=== PATIENT | male | born 1940 | race Caucasian/White ===

== ENCOUNTER 2019-12-27 16:22 | Inpatient (IN) ==
[2019-12-27] MEDS ORDERED: DEXTROSE 50% 25 GM/50 ML VIAL IV PRN (19:44)
[2019-12-27] MEDS ORDERED: DOCUSATE SODIUM 100 MG CAPSULE PO PRN (19:44)
[2019-12-27] MEDS ORDERED: GLUCAGON 1 MG VIAL IM PRN (19:44)
[2019-12-27] MEDS ORDERED: hydrALAZINE 20 MG/1 ML VIAL IV PRN (19:59)
[2019-12-27] MEDS ORDERED: CLOPIDOGREL 300 MG TABLET PO STA (20:04)
[2019-12-27 20:18] LABS: Basophils # 0.1 10*3/uL (0.0-0.2); Basophils % 0.4 % (0.0-0.8); Eosinophils % 0.1 % (0.00-10.9); Hemoglobin 17.5 GM/DL (14.0-18.0); Immature Granulocytes % 0.4 %; Immature Granulocytes Absolute 0.07 #; Lymphocytes # 2.3 10*3/uL (1.4-4.0); Lymphocytes % 14.7 % (21.2-54.2); Mean Corpuscular Volume 90.4 FL (87-102); Mean Platelet Volume 10.2 FL (9.6-12.0); Monocytes % 4.2 % (1.7-12.7); Neutrophils % 80.2 % (38.7-73.9); Platelet Count 278 T/CUMM (130-400); Red Blood Count 5.86 MC/CUMM (3.8-5.5); Red Cell Distribution Width 12.5 % (9.3-17.3); White Blood Count 15.9 T/CUMM (4-12)
[2019-12-27 20:38] LABS: Albumin 3.6 G/DL (3.4-5.0); Bilirubin,Total 0.8 MG/DL (0.2-1.0); Calcium 9.1 MG/DL (8.5-10.1); Osmolality,Calculated 278.2 MOS/KG (273-304); Total Protein 7.1 G/DL (6.4-8.3)
[2019-12-27] MEDS ORDERED: METOPROLOL TARTRATE 25 MG TABLET PO SCH (21:00)
[2019-12-27] MEDS ORDERED: METOPROLOL TARTRATE 25 MG TABLET PO ONE (21:01)
[2019-12-27] MEDS: ATORVASTATIN 40 MG TABLET PO SCH (21:40)
[2019-12-27] MEDS: ACETAMINOPHEN 325 MG TABLET PO PRN (21:40)
[2019-12-28 00:48] LABS: CKMB % 11.4 %
[2019-12-28 02:28] LABS: Basophils # 0.1 10*3/uL (0.0-0.2); Basophils % 0.3 % (0.0-0.8); Eosinophils # 0.2 10*3/uL (0.0-0.87); Hematocrit 48.4 VOL% (42.0-52.0); Hemoglobin 16.4 GM/DL (14.0-18.0); Immature Granulocytes % 0.5 %; Immature Granulocytes Absolute 0.08 #; Lymphocytes # 3.8 10*3/uL (1.4-4.0); Lymphocytes % 22.6 % (21.2-54.2); Mean Corpuscular HGB Conc 33.9 GM/DL (32-36); Mean Corpuscular Volume 87.5 FL (87-102); Mean Platelet Volume 10.2 FL (9.6-12.0); Neutrophils % 66.6 % (38.7-73.9); Platelet Count 245 T/CUMM (130-400); Red Blood Count 5.53 MC/CUMM (3.8-5.5); Red Cell Distribution Width 12.6 % (9.3-17.3); White Blood Count 16.7 T/CUMM (4-12)
[2019-12-28 02:58] LABS: Albumin 3.3 G/DL (3.4-5.0); Bilirubin,Total 0.8 MG/DL (0.2-1.0); Calcium 8.8 MG/DL (8.5-10.1); Risk Ratio 5.8; Thyroid Stimulating Hormone 1.86 uIU/ml (0.358-3.74); Total Protein 6.3 G/DL (6.4-8.3); VLDL CHOLESTEROL 39.6 MG/DL
[2019-12-28] MEDS: METOPROLOL TARTRATE 25 MG TABLET PO SCH ×3 (03:25→21:20)
[2019-12-28] MEDS: ENOXAPARIN 100 MG/ML SYRINGE SUBCUT SCH ×2 (03:26→15:14)
[2019-12-28] MEDS: LEVOTHYROXINE 50 MCG TABLET PO SCH (06:23)
[2019-12-28 06:47] LABS: CKMB % 11.1 %
[2019-12-28] MEDS: NITROGLYCERIN 0.4 MG/HR PATCH TRANSDERM SCH (08:41)
[2019-12-28] MEDS: POTASSIUM CHLORIDE 20 MEQ TABLET PO SCH (08:43)
[2019-12-28] MEDS: PANTOPRAZOLE 40 MG TABLET PO SCH (08:43)
[2019-12-28] MEDS: CLOPIDOGREL 75 MG TABLET PO SCH (08:43)
[2019-12-28] MEDS: ASPIRIN 325 MG TABLET PO SCH (08:43)
[2019-12-28] MEDS: FINASTERIDE 5 MG TABLET PO SCH (08:43)
[2019-12-28] MEDS ORDERED: LOSARTAN 50 MG TABLET PO SCH (09:00)
[2019-12-28] MEDS ORDERED: POTASSIUM CHLORIDE 20 MEQ TABLET PO ONE (11:07)
[2019-12-28 11:16] LABS: CKMB % 9.6 %
[2019-12-28] MEDS: GABAPENTIN 100 MG CAPSULE PO SCH ×2 (15:14→21:20)
[2019-12-28] MEDS ORDERED: oxyCODONE/ACETAMINOPHEN 5-325 MG TABLET PO ONE (19:33)
[2019-12-28] MEDS: ACETAMINOPHEN 325 MG TABLET PO PRN (19:56)
[2019-12-28] MEDS: ATORVASTATIN 40 MG TABLET PO SCH (21:20)
[2019-12-29] MEDS: ENOXAPARIN 100 MG/ML SYRINGE SUBCUT SCH ×2 (05:05→15:29)
[2019-12-29] MEDS: LEVOTHYROXINE 50 MCG TABLET PO SCH (06:13)
[2019-12-29 06:25] LABS: Calcium 8.6 MG/DL (8.5-10.1); Osmolality,Calculated 278.7 MOS/KG (273-304)
[2019-12-29 06:27] LABS: Basophils # 0.1 10*3/uL (0.0-0.2); Basophils % 0.4 % (0.0-0.8); Eosinophils # 0.3 10*3/uL (0.0-0.87); Eosinophils % 2.1 % (0.00-10.9); Hematocrit 46.2 VOL% (42.0-52.0); Hemoglobin 15.3 GM/DL (14.0-18.0); Immature Granulocytes % 0.6 %; Immature Granulocytes Absolute 0.08 #; Lymphocytes # 3.9 10*3/uL (1.4-4.0); Lymphocytes % 30.7 % (21.2-54.2); Mean Corpuscular HGB Conc 33.1 GM/DL (32-36); Mean Corpuscular Volume 89.5 FL (87-102); Mean Platelet Volume 10.4 FL (9.6-12.0); Monocytes % 10.4 % (1.7-12.7); Neutrophils % 55.8 % (38.7-73.9); Platelet Count 216 T/CUMM (130-400); Red Blood Count 5.16 MC/CUMM (3.8-5.5); Red Cell Distribution Width 12.6 % (9.3-17.3); White Blood Count 12.7 T/CUMM (4-12)
[2019-12-29] MEDS: ASPIRIN 325 MG TABLET PO SCH (10:18)
[2019-12-29] MEDS: POTASSIUM CHLORIDE 20 MEQ TABLET PO SCH (10:19)
[2019-12-29] MEDS: LOSARTAN 25 MG TABLET PO SCH (10:22)
[2019-12-29] MEDS: GABAPENTIN 100 MG CAPSULE PO SCH ×3 (10:22→22:01)
[2019-12-29] MEDS: NITROGLYCERIN 0.4 MG/HR PATCH TRANSDERM SCH (10:23)
[2019-12-29] MEDS: METOPROLOL TARTRATE 25 MG TABLET PO SCH ×2 (10:23→22:01)
[2019-12-29] MEDS: PANTOPRAZOLE 40 MG TABLET PO SCH (10:23)
[2019-12-29] MEDS: CLOPIDOGREL 75 MG TABLET PO SCH (10:38)
[2019-12-29] MEDS ORDERED: POTASSIUM CHLORIDE 20 MEQ TABLET PO ONE (10:55)
[2019-12-29] MEDS ORDERED: MAGNESIUM SULF RIDER 2 GM in PREMIX 1 EACH IV PRN (13:54)
[2019-12-29] MEDS ORDERED: POTASSIUM CHLORIDE RIDER 10 MEQ in PREMIX 1 EACH IV PRN (13:54)
[2019-12-29] MEDS: ATORVASTATIN 40 MG TABLET PO SCH (22:01)
[2019-12-29] MEDS: SODIUM CHLORIDE 0.9% 1,000 ML IV SCH (22:05)
[2019-12-30] MEDS: ACETAMINOPHEN 325 MG TABLET PO PRN ×3 (03:28→23:36)
[2019-12-30 05:05] LABS: Basophils # 0.1 10*3/uL (0.0-0.2); Basophils % 0.4 % (0.0-0.8); Eosinophils # 0.3 10*3/uL (0.0-0.87); Eosinophils % 2.5 % (0.00-10.9); Hematocrit 45.8 VOL% (42.0-52.0); Hemoglobin 15.6 GM/DL (14.0-18.0); Immature Granulocytes % 0.5 %; Immature Granulocytes Absolute 0.07 #; Lymphocytes # 3.4 10*3/uL (1.4-4.0); Lymphocytes % 26.7 % (21.2-54.2); Mean Corpuscular HGB Conc 34.1 GM/DL (32-36); Mean Corpuscular Volume 89.1 FL (87-102); Mean Platelet Volume 10.2 FL (9.6-12.0); Monocytes % 11.7 % (1.7-12.7); Neutrophils % 58.2 % (38.7-73.9); Platelet Count 203 T/CUMM (130-400); Red Blood Count 5.14 MC/CUMM (3.8-5.5); Red Cell Distribution Width 12.6 % (9.3-17.3); White Blood Count 12.8 T/CUMM (4-12)
[2019-12-30 05:35] LABS: Albumin 3.1 G/DL (3.4-5.0); Calcium 8.5 MG/DL (8.5-10.1); Osmolality,Calculated 280.5 MOS/KG (273-304); Total Protein 6.1 G/DL (6.4-8.3)
[2019-12-30] MEDS: ENOXAPARIN 100 MG/ML SYRINGE SUBCUT SCH (06:00)
[2019-12-30] MEDS ORDERED: DIAZEPAM 5 MG TABLET PO ONE (06:30)
[2019-12-30] MEDS ORDERED: diphenhydrAMINE CAP 25 MG CAPSULE PO ONE (06:30)
[2019-12-30] MEDS: LEVOTHYROXINE 50 MCG TABLET PO SCH (06:35)
[2019-12-30] MEDS: METOPROLOL TARTRATE 25 MG TABLET PO SCH ×3 (07:40→21:17)
[2019-12-30] MEDS: ASPIRIN 325 MG TABLET PO SCH ×2 (07:40→08:23)
[2019-12-30] MEDS: LOSARTAN 25 MG TABLET PO SCH ×2 (07:40→08:23)
[2019-12-30] MEDS: PANTOPRAZOLE 40 MG TABLET PO SCH ×2 (07:40→08:24)
[2019-12-30] MEDS ORDERED: LIDOCAINE 1% 20 ML VIAL ONE (08:04)
[2019-12-30] MEDS ORDERED: MIDAZOLAM 2 MG/2 ML VIAL ONE (08:07)
[2019-12-30] MEDS ORDERED: fentaNYL 100 MCG/2 ML VIAL ONE (08:07)
[2019-12-30] MEDS: GABAPENTIN 100 MG CAPSULE PO SCH ×3 (08:24→21:17)
[2019-12-30] MEDS: FINASTERIDE 5 MG TABLET PO SCH (08:24)
[2019-12-30] MEDS: POTASSIUM CHLORIDE 20 MEQ TABLET PO SCH (08:24)
[2019-12-30] MEDS ORDERED: HEPARIN 5,000 UNIT/1 ML VIAL ONE (08:40)
[2019-12-30] MEDS ORDERED: TIROFIBAN 5,000 MCG/100 ML PREMIX IV ONE (08:42)
[2019-12-30] MEDS ORDERED: TIROFIBAN 5,000 MCG/100 ML PREMIX IV SCH (08:50)
[2019-12-30] MEDS: NITROGLYCERIN 0.4 MG/HR PATCH TRANSDERM SCH (09:24)
[2019-12-30] MEDS ORDERED: TICAGRELOR 90 MG TABLET ONE (09:28)
[2019-12-30] MEDS: SODIUM CHLORIDE 0.9% 1,000 ML IV SCH (11:56)
[2019-12-30] MEDS ORDERED: hydrALAZINE 20 MG/1 ML VIAL IV PRN (13:28)
[2019-12-30] MEDS ORDERED: ROSUVASTATIN 20 MG TABLET PO SCH (21:00)
[2019-12-30] MEDS: TICAGRELOR 90 MG TABLET PO SCH (21:18)
[2019-12-30] MEDS ORDERED: ALPRAZolam 0.5 MG TABLET PO ONE (23:19)
[2019-12-31 02:02] LABS: Basophils % 0.3 % (0.0-0.8); Eosinophils # 0.2 10*3/uL (0.0-0.87); Eosinophils % 1.8 % (0.00-10.9); Hematocrit 46.9 VOL% (42.0-52.0); Hemoglobin 15.6 GM/DL (14.0-18.0); Immature Granulocytes % 0.6 %; Immature Granulocytes Absolute 0.08 #; Lymphocytes # 2.1 10*3/uL (1.4-4.0); Lymphocytes % 15.7 % (21.2-54.2); Mean Corpuscular HGB Conc 33.3 GM/DL (32-36); Mean Platelet Volume 10.1 FL (9.6-12.0); Monocytes % 9.1 % (1.7-12.7); Neutrophils % 72.5 % (38.7-73.9); Platelet Count 224 T/CUMM (130-400); Red Blood Count 5.21 MC/CUMM (3.8-5.5); Red Cell Distribution Width 12.6 % (9.3-17.3); White Blood Count 13.3 T/CUMM (4-12)
[2019-12-31 02:29] LABS: Calcium 8.5 MG/DL (8.5-10.1); Osmolality,Calculated 278.7 MOS/KG (273-304)
[2019-12-31] MEDS: LEVOTHYROXINE 50 MCG TABLET PO SCH (05:54)
[2019-12-31] MEDS ORDERED: NITROGLYCERIN SL 0.4 MG TABLET SL PRN (08:25)
[2019-12-31] MEDS ORDERED: ASPIRIN CHEW 81 MG TABLET PO SCH (09:00)
[2019-12-31] MEDS: METOPROLOL TARTRATE 25 MG TABLET PO SCH (09:40)
[2019-12-31] MEDS: LOSARTAN 25 MG TABLET PO SCH (09:40)
[2019-12-31] MEDS: PANTOPRAZOLE 40 MG TABLET PO SCH (09:40)
[2019-12-31] MEDS: TICAGRELOR 90 MG TABLET PO SCH (09:40)
[2019-12-31] MEDS: POTASSIUM CHLORIDE 20 MEQ TABLET PO SCH (09:40)
[2019-12-31] MEDS: FINASTERIDE 5 MG TABLET PO SCH (09:40)
[2019-12-31] MEDS: GABAPENTIN 100 MG CAPSULE PO SCH ×2 (09:40→14:10)
[2019-12-31 12:11] VITALS: BP 153/96
[2019-12-31] MEDS ORDERED: LOSARTAN 25 MG TABLET PO ONE (12:35)
[2020-01-01] MEDS ORDERED: LOSARTAN 50 MG TABLET PO SCH (09:00)
== END 2019-12-31 15:04 | disposition home or self-care (01) | DRG 247 ==
LOC: SUATTDRO 18:07 → N.TELEN 18:07
PROVIDERS: ADMIT Internal Medicine; ATTEND Internal Medicine Geriatric Medicine
PROC: CLCCHCL (ICD-10-PCS; 2019-12-30 09:15)